=== PATIENT | female | born 1950 | race Caucasian/White ===

== ENCOUNTER 2019-04-26 07:22 | Day surgery (SDC) | payer MEDICARE ==
[~2019-04-26] VITALS: Ht 152.4 cm; Wt 63.7 kg
[~2019-04-26 07:22] MED LIST: PANT40 PO; PEPCID40 MG; Prinivil10 MG
== END 2019-04-26 09:36 | disposition home or self-care (01) ==
LOC: ORSCSDS 07:22
PROVIDERS: Internal Medicine Gastroenterology
PROC: 0DJD8ZZ Inspection of Lower Intestinal Tract, Via Natural or Artificial Opening Endoscopic (ICD-10-PCS; principal; 2019-04-26 08:45)
DX: Z12.11 Encounter for screening for malignant neoplasm of colon (principal); K57.30 Diverticulosis of large intestine without perforation or abscess without bleeding; K64.8 Other hemorrhoids; Z86.010 Personal history of colon polyps
CPT/HCPCS: J2704; J7120